=== PATIENT | female | born 1980 | race Caucasian/White ===

== ENCOUNTER 2016-10-23 19:37 | Emergency (ER) | payer MEDICAID ==
[~2016-10-23] VITALS: Ht 160 cm; Wt 81.2 kg
[~2016-10-23 19:37] MED LIST: MOTRIN600 MG PO; PROAIR HFA0.09 MG/Ac IH
[2016-10-23 20:20] VITALS: BP 118/75
--- NOTE | 2016-10-23 23:36 | NUR ---
PATIENT AMBULATED TO BED 3.
--- NOTE | 2016-10-23 23:55 | NUR ---
PATIENT PRESENTS TO ED WITH ABD PAIN . PT STATES ABD PAIN X1DAY WITH NAUSEA. PT REPORTS A MEDICAL HX OF UMBILICAL HERNIA, ASTHMA, AND AN APPENDECTOMY IN 2000 . DENIES V/D; SKIN IS PINK/WARM/DRY; AAOX4 WITH EVEN AND STEADY GAIT; LUNGS CLEAR BL; HR EVEN AND REGULAR; PT DENIES ANY FEVER, CP, SOB, OR COUGH AT THIS TIME; PATIENT STATES PAIN OF 8/10 AT THIS TIME; VSS; PATIENT POSITIONED FOR COMFORT; HOB ELEVATED; BEDRAILS UP X2; BED DOWN. ER MD MADE AWARE OF PT STATUS.
[2016-10-24] MEDS ORDERED: ONDANSETRON 4 MG/2 ML VIAL IVP ONE (00:30)
[2016-10-24] MEDS ORDERED: MORPHINE SULFATE 4 MG/ML SYR IVP ONE (00:30)
[2016-10-24] MEDS ORDERED: NACL 0.9% 1,000 ML IV ONE (00:30)
--- NOTE | 2016-10-24 01:54 | NUR ---
Patient appears to be resting comfortably in bed. Vital Signs within normal limits. Respirations even and unlabored.
[2016-10-24 02:57] VITALS: BP 120/82
--- NOTE | 2016-10-24 02:58 | NUR ---
Patient discharged with v/s stable. Written and verbal after care instructions given and explained. Patient alert, oriented and verbalized understanding of instructions. Ambulatory with steady gait. All questions addressed prior to discharge. ID band removed. Patient advised to follow up with PMD. Rx of NORCOS given. Patient educated on indication of medication including possible reaction and side effects. Opportunity to ask questions provided and answered. RECOMMENDED TO PT TO HAVE SOMEONE COME TO PICK HER UP. PT REFUSED X3.
== END 2016-10-24 02:58 | disposition home or self-care (01) ==
LOC: MED 19:37
DX: R10.33 Periumbilical pain (principal); J45.909 Unspecified asthma, uncomplicated; Z90.49 Acquired absence of other specified parts of digestive tract
CPT/HCPCS: 36415; 74177; 80053; 81001; 81025; 83690; 85025; 96361; 96374; 96375; 99285; J2270; J2405; J7030; Q9967

== ENCOUNTER 2017-01-25 10:49 | Emergency (ER) | payer MEDICAID ==
[~2017-01-25] VITALS: Ht 160 cm; Wt 83.9 kg
[~2017-01-25 10:49] MED LIST changes: +ALBU-136 IH; +IBUP-2213 PO; -MOTRIN600 MG PO; -PROAIR HFA0.09 MG/Ac IH
[2017-01-25 11:02] VITALS: BP 116/81
--- NOTE | 2017-01-25 11:10 | NUR ---
Patient ambulated to bed 03.
--- NOTE | 2017-01-25 11:11 | NUR ---
bed 08
--- NOTE | 2017-01-25 11:20 | NUR ---
PATIENT PRESENTS TO ED WITH LOWER BACK PAIN X1 DAY S/P EXERCISING; DENIES N/V/D; SKIN IS PINK/WARM/DRY; AAOX4 WITH EVEN AND STEADY GAIT; LUNGS CLEAR BL; HR EVEN AND REGULAR; PT DENIES ANY FEVER, CP, SOB, OR COUGH AT THIS TIME; PATIENT STATES PAIN OF 8/10 AT THIS TIME; VSS; PATIENT POSITIONED FOR COMFORT; HOB ELEVATED; BEDRAILS UP X2; BED DOWN. ER MD MADE AWARE OF PT STATUS.
--- NOTE | 2017-01-25 11:29 | NUR ---
Dr. Wray evaluating patient at bedside.
[2017-01-25] MEDS ORDERED: KETOROLAC 60 MG/2 ML VIAL IM ONE (11:35)
[2017-01-25 12:03] VITALS: BP 124/65
--- NOTE | 2017-01-25 12:03 | NUR ---
Patient discharged with v/s stable. Written and verbal after care instructions given and explained. Patient alert, oriented and verbalized understanding of instructions. Ambulatory with steady gait. All questions addressed prior to discharge. ID band removed. Patient advised to follow up with PMD. Rx of MOTRIN, VALIUM, NORCO given. Patient educated on indication of medication including possible reaction and side effects. Opportunity to ask questions provided and answered.
== END 2017-01-25 12:03 | disposition home or self-care (01) ==
LOC: MED 10:49
DX: M54.5 Low back pain (principal); J45.909 Unspecified asthma, uncomplicated
CPT/HCPCS: 81002; 81025; 96372; 99283; J1885